=== PATIENT | female | born 1990 | race Caucasian/White ===

== ENCOUNTER 2017-01-25 10:29 | Inpatient (IN) | payer BC ==
[~2017-01-25] VITALS: Ht 167.6 cm; Wt 98.9 kg
--- NOTE | ~2017-01-25 | A ---
[facility] Nutrition Therapy DATE: 01/27/17 Patient: SAM DENTON Physician: NICOLETTE Address: [address] [place] [address] Room/Bed: [address] [place] [address], Zip: [place] [address] Admit Date: 01/25/17 Date of : [birth year] Height: 5 6 Weight: 218 98.88 NUTRITIONAL ASSESSMENT: REASON: Consult for low fiber diet education Recommendations: RD was reviewing the patient's chart in [facility] when it was discovered the patient has been discharged before diet eduacation was able to be performed. Will mail patient the appropriate diet education handouts with RD contact info. Respectfully, Alise Barber RD, [facility] [employer] [facility] cc: client file
--- NOTE | ~2017-01-25 | CO ---
Unit #: [id number] #: [id number] Patient: SAM DENTON [id number] [address] [address] [id number] MR#: [id number] NAME: SAM DENTON ROOM: 241 Age: 26 Sex: F Admission Date: 01/25/2017 : 1990 Attending Physician: Pedro Ventura M.D. Primary Care Physician: No Primary Care Physician Consultation Date: 01/25/2017 CONSULTATION REPORT REASON FOR CONSULTATION Left lower quadrant pain. CONSULTING PHYSICIAN [facility] Emergency Room physician. Thank you very much for asking us to see Ms. Denton. HISTORY OF PRESENT ILLNESS She is a 26-year-old female whose past medical history is remarkable for tubal ligation and a history of diverticulitis a year ago. She was treated nonoperatively and it resolved. She states she has had a colonoscopy a year ago by a baggagemaster named Dr. Espinoza, but she does not know the results. She was well until one to two weeks ago when she developed left lower quadrant pain. She denies any GI bleeding. She has had no or pulmonary symptoms. Her weight has been stable, and her appetite has been good. The pain is a deep pressure pain in the left lower quadrant with occasional sharp exacerbations. She came to the emergency room for evaluation. A CT scan of the abdomen and pelvis revealed inflammatory changes of an 18 inch segment of colon in left lower quadrant with possibly a few adjacent small bubbles of air. The area was significantly inflamed. She presents at this time for further evaluation and treatment. ALLERGIES No known medical allergies. MEDICATIONS Dicyclomine. PAST SURGICAL HISTORY Tubal ligation. PAST MEDICAL HISTORY Diverticulitis. SOCIAL HISTORY No alcohol use. Positive tobacco use. REVIEW OF SYSTEMS Negative except for above. IMMUNIZATION Immunization status unknown. Unit #: [id number] #: [id number] Patient: SAM DENTON FAMILY HISTORY Noncontributory. PHYSICAL EXAMINATION GENERAL: A well-developed, well-nourished, female in no apparent distress. Awake, alert, and oriented. VITAL SIGNS: Temperature 98.7, pulse 85, respirations 17, blood pressure 123/82. NECK: Supple. No thyromegaly or adenopathy. BACK: No CVA or spinous tenderness. HEENT: Sclerae nonicteric. Extraocular movements are intact. ABDOMEN: Flat, soft, tender in the left lower quadrant but no rebound, peritoneal signs, or masses. No guarding. EXTREMITIES: No calf tenderness. No erythema. DIAGNOSTIC STUDIES LABORATORY: Reveal a normal CMP, normal urinalysis, and a white count of 11,000. IMPRESSION A 26-year-old female with her second episode of acute diverticulitis. We recommend IV fluids, IV antibiotics and after this resolves she may need a colonoscopy. We have also discussed with her the fact that with two episodes at a very young age, she may need elective resection of the area if diverticular disease is indeed found. Our priority at this point is to have this resolved nonoperatively. Dictated by... Kvng Linton M.D. Jez TD: 01/26/2017 10:37 JOB #: [id number] CC: [facility] CONSULTATION REPORT Page 1 of 1 X Kvng Linton MD X CONSULTATION REPORT
--- NOTE | ~2017-01-25 | CT4 ---
[facility] A Service of [facility] RADIOLOGY TEXT RESULTS PATIENT: SAM DENTON LOCATION: [facility] : [birth year] UNIT #: [id number] AGE: [address]: Fred Paige MD SEX: F ORDER DR: [id number] [facility] [address]. [place], [place] [address] [id number] MR#: [id number] Acc #: [id number] NAME: SAM DENTON : 1990 SEX: F STUDY DATE/TIME: 01/25/2017 12:23 UNIT: DAVID ROOM: STUDY DESCRIPTION: CT Abd and Pelv Wo Cont Attending Physician: Fred Paige M.D. Referring Physician: No Primary Care Physician Ordering Physician: Fred Paige M.D. Primary Care Physician: No Primary Care Physician MEDICAL IMAGING REPORT This report is preliminary unless electronic signature is present EXAM CT abdomen and pelvis without contrast. HISTORY Lower abdomen pain for 3 weeks. COMPARISON 05/05/2016 TECHNIQUE Axial 5 mm images were obtained through the abdomen and pelvis without IV or oral contrast. Sagittal and coronal reconstructions were generated. This CT exam was performed with one or more of the following radiation dose reduction techniques: automatic exposure control, adjustment of mA and/or kV according to patient size, and iterative reconstruction. FINDINGS Lung bases are clear. The liver, gallbladder, spleen, pancreas, adrenal glands, and kidneys are normal. The aorta is normal in size. The appendix is normal. Sigmoid colon is abnormal. There is a long segment measuring at least 18 cm in length that shows wall thickening and slight distension. There are diverticula. There are 2 bubbles that could possibly be extraluminal. They are only 3 mm in diameter. It is also possible these are within small diverticula. They are along the posterior wall. There is inflammation in the surrounding fat. The more distal colon is normal. The bladder and uterus and adnexal regions are normal. The bones are unremarkable. IMPRESSION The patient has about an 18 cm long segment of the sigmoid colon that is markedly abnormal with slight distension and wall thickening. There are [facility] A Service of [facility] RADIOLOGY TEXT RESULTS PATIENT: SAM DENTON LOCATION: [facility] : [birth year] UNIT #: [id number] AGE: [address]: Fred Paige MD SEX: F ORDER DR: several diverticula visible in this region. It is difficult to exclude tiny bubbles of extraluminal air but they are probably contained in small thin-walled diverticula. There is inflammation in the surrounding fat. There are small lymph nodes in the mesentery in this region that are abnormal in their quantity. Findings likely represent colitis and/or diverticulitis. This is the same area that was abnormal 05/05/2016. The findings are worst today than on that examination. Dictated by... Jair Corea M.D. THIS IS AN ELECTRONICALLY VERIFIED REPORT Jair Corea M.D. at 01/25/2017 3:31 PM ROMAIN/suyapa TD: 01/25/2017 14:54 JOB #: [id number] MEDICAL IMAGING REPORT Page 1 of 1 COPY
--- NOTE | ~2017-01-25 | DS ---
Unit #: [id number] #: [id number] Patient: SAM DENTON [id number] [address] [address] [id number] I MR#: [id number] NAME: SAM DENTON ROOM: 241 Age: 26 Sex: F Admission Date: 01/25/2017 : 1990 Discharge Date: 01/27/2017 Attending Physician: Pedro Ventura M.D. Referring Physician: No Primary Care Physician Primary Care Physician: No Primary Care Physician DISCHARGE SUMMARY DISCHARGE DIAGNOSIS Colitis versus diverticulitis of the left colon. OPERATIVE PROCEDURES None. DISCHARGE MEDICATIONS 1. Augmentin 875 mg one p.o. b.i.d. 2. Flagyl 250 mg one p.o. t.i.d. 3. Lortab 7.5 mg one p.o. q.4 hours p.r.n. pain. HISTORY OF PRESENT ILLNESS This is a 26-year-old white female who was admitted with possible diverticulitis versus colitis. A CT scan of the abdomen shows some inflammation of the left colon. WBC count was 11,000. The patient incidentally had a colonoscopy done a year ago which was within normal limits. Diagnosis at that time was irritable bowel with a very similar episode. The patient was admitted, given IV antibiotics for 48 hours. Her symptoms cleared fairly quickly. Her diet was advanced to a low residue diet. She is nontender. WBC count is normal. She is afebrile. She is ready to be discharged, come back to see us in the office in about 8 to 12 days. We will put her on oral antibiotics. She is to do no strenuous activity until we do see her in the office. Colonoscopy will be entertained to be done in about two weeks. Dictated by... Surendra Pastor/cindy TD: 01/29/2017 09:21 JOB #: [id number] DISCHARGE SUMMARY Page 1 of 1 X Roger Gagnon MD X DISCHARGE SUMMARY
[~2017-01-25 10:29] MED LIST: CIPRO PO; FLEXERIL10 MG PO; LORTAB 5/500 TA1 TA1 PO; METRONIDAZOLE PO; NO MEDICATIONS; PHENERGAN25 M1 PO
[2017-01-25 11:23] LABS: URINE SOURCE CLEAN CATCH
[2017-01-25 11:29] LABS: URINE APPEARANCE CLEAR; URINE BILIRUBIN NEG (NEG); URINE BLOOD 3+ (NEG); URINE COLOR YELLOW; URINE GLUCOSE NORM (NORM); URINE KETONE NEG (NEG); URINE LEUKOCYTE ESTERASE NEG (NEG); URINE NITRATE NEG (NEG); URINE PROTEIN NEG (NEG); URINE UROBILINOGEN NORM (NORM)
[2017-01-25 11:32] LABS: URBCS1 AUWI 25-50 /[HPF] (0-2); URINE BACTERIA AUWI NEG (NEGATIVE); URINE SQUAMOUS EPITHELIAL CELL OCC /[HPF]
[2017-01-25 11:33] LABS: CULTURE INDICATED? NO
[2017-01-25 11:38] LABS: BASOPHIL% 0.2 % (0-2.5); EOSINOPHIL% 0.4 % (0.0-7.0); HEMATOCRIT 33.5 % (35.0-45.0); HEMOGLOBIN 10.8 gm/dL (12.0-16.0); LYMPHOCYTE# 1.8 X10e3 (1.0-3.5); LYMPHOCYTE% 15.6 % (17.0-45.0); MEAN CELL VOLUME 74.1 FL (83-96); MEAN CORPUSCULAR HEMOGLOBIN 23.8 PG (28-34); MEAN CORPUSCULAR HGB CONC 32.2 g/dL (30-36); MEAN PLATELET VOLUME 8.4 FL (6.5-11.5); MONOCYTE# 0.5 X10e3 (0-1.0); NEUTROPHIL# 9.4 X10e3 (1.5-7.1); NEUTROPHIL% 79.8 % (40-75); PLATELET COUNT 278 X10e3 (140-420); RED BLOOD COUNT 4.52 X10e (3.90-5.30); RED CELL DISTRIBUTION WIDTH 15.7 % (11.0-15.5); WHITE BLOOD COUNT 11.7 X10e3 (4.0-10.5)
[2017-01-25 11:41] LABS: DIFF IND NO
[2017-01-25 12:11] LABS: ALBUMIN SERUM 3.6 g/dL (3.5-5.0); ALKALINE PHOSPHATASE 66 U/L (32-92); ALT (SGPT) 11 U/L (10-40); AMYLASE 18 U/L (0-46); AST (SGOT) 14 U/L (10-42); BILIRUBIN,TOTAL 0.6 mg/dL (0.2-2.0); BLOOD UREA NITROGEN 10 mg/dL (9-23); BUN/CREATININE RATIO 16.66; CALCIUM SERUM 8.9 mg/dL (8.4-10.2); CARBON DIOXIDE 25 mmol/L (22-31); CHLORIDE 107 mmol/L (100-111); CREATININE SERUM 0.6 mg/dL (0.6-1.4); GLOM FILT RATE Estimated 125.8 mL/min (>60); GLUCOSE FASTING 100 mg/dL (70-110); LIPASE 18 U/L (22-51); POTASSIUM 3.6 mmol/L (3.5-5.1); PROTEIN TOTAL SERUM 6.9 g/dL (6.0-8.3); SODIUM 138 mmol/L (135-145)
[2017-01-25 12:12] LABS: BILIRUBIN, DIRECT <0.1 mg/dL (0.0-0.2); BILIRUBIN,INDIRECT 0.5 mg/dL (0.0-0.9)
[2017-01-26 07:29] LABS: HEMATOCRIT 34.5 % (35.0-45.0); HEMOGLOBIN 11.2 gm/dL (12.0-16.0); MEAN CELL VOLUME 73.7 FL (83-96); MEAN CORPUSCULAR HEMOGLOBIN 23.8 PG (28-34); MEAN CORPUSCULAR HGB CONC 32.3 g/dL (30-36); MEAN PLATELET VOLUME 8.5 FL (6.5-11.5); RED BLOOD COUNT 4.68 X10e (3.90-5.30); RED CELL DISTRIBUTION WIDTH 15.4 % (11.0-15.5); WHITE BLOOD COUNT 11.7 X10e3 (4.0-10.5)
[2017-01-26 08:03] LABS: CALCIUM SERUM 8.7 mg/dL (8.4-10.2); CREATININE SERUM 0.7 mg/dL (0.6-1.4); GLOM FILT RATE Estimated 119.6 mL/min (>60); POTASSIUM 3.4 mmol/L (3.5-5.1)
[2017-01-27] MEDS ORDERED: LORTAB 7.5-3251 EACH PO (09:47)
[2017-01-27] MEDS ORDERED: FLAGYL250 M1 PO (09:51)
[2017-01-27] MEDS ORDERED: AUGMENTIN PO (09:51)
[2017-03-08] MEDS ORDERED: DICYCLOMINE HCL10 MG (14:56)
== END 2017-01-27 10:42 | disposition home or self-care (01) | DRG 392 ==
LOC: CFTX 10:29 → CED 10:29 → C2A 15:49
PROVIDERS: Emergency Medicine; Surgery
DX: K57.92 Diverticulitis of intestine, part unspecified, without perforation or abscess without bleeding (principal); Z98.51 Tubal ligation status
CPT/HCPCS: 36415; 74176; 80048; 80076; 81003; 82150; 83690; 84703; 85025; 85027; 94010; 96360; 96372; 99285; J0500; J1650; J2543; J2550

== ENCOUNTER → 2017-03-13 | Day surgery (SDC) | payer BC ==
[~2017-03-13] MED LIST changes: +AUGMENTIN PO; +DICYCLOMINE HCL10 MG; +FLAGYL250 M1 PO; +LORTAB 7.5-3251 EACH PO
--- NOTE | ~2017-03-13 | OR ---
Unit #: [id number] #: [id number] Patient: SAM DENTON [id number] [address] [place], [place] [address] [id number] O MR#: [id number] NAME: SAM DENTON ROOM: Date of Procedure: 03/13/2017 Admission Date: 03/13/2017 Surgeon: Kvng Linton M.D. : 1990 Attending Physician: Kvng Linton M.D. Primary Care Physician: Generic Doctor Not In System OPERATIVE REPORT PREOPERATIVE DIAGNOSIS Left lower quadrant pain. POSTOPERATIVE DIAGNOSIS Left lower quadrant pain. PROCEDURE PERFORMED Colonoscopy to cecum. ANESTHESIA Monitored anesthesia care. FINDINGS The patient was found to have scattered sigmoid diverticula and a tortuous colon. SPECIMENS None. COMPLICATIONS None apparent. CONDITION The patient tolerated the procedure well. INDICATIONS FOR PROCEDURE The patient is a 27-year-old female, who presents at this time with a left lower quadrant pain. She had a recent episode was felt to be diverticulitis. She presents at this time for evaluation by colonoscopy. DESCRIPTION OF PROCEDURE After obtaining informed consent, the patient was brought to the endoscopy suite and after adequate monitored anesthesia care, had the colonoscope placed through the anus and slowly advanced to the level of the cecum without difficulty with the lumen always in view. The cecum was normal as was the ileocecal valve. The ascending colon was normal as was the hepatic flexure, transverse colon, splenic flexure, and descending colon. The sigmoid colon was very tortuous and had only scattered sigmoid diverticula. They were not very numerous. The rectosigmoid and rectum were all within normal limits. On retroflexing in the rectum to the anorectal junction, no abnormalities were seen. The scope was removed without difficulty. The patient went from the endoscopy suite to the recovery area in stable condition. Unit #: [id number] #: [id number] Patient: SAM DENTON RECOMMENDATIONS High-fiber diet, lots of liquids, tucks or wipes p.r.n. Diverticular sheet given. Dictated by... Surendra Ruelas/trent TD: 03/13/2017 14:10 JOB #: [id number] CC: [facility] J Coole, M.D. OPERATIVE REPORT Page 1 of 1 X Kvng Linton MD PROCEDURE OPERATIVE NOTE
== END | disposition home or self-care (01) ==
LOC: COPS 05:45
PROVIDERS: Surgery
PROC: 0DJD8ZZ Inspection of Lower Intestinal Tract, Via Natural or Artificial Opening Endoscopic (ICD-10-PCS; principal; 2017-03-13 07:30)
DX: K57.30 Diverticulosis of large intestine without perforation or abscess without bleeding (principal); K63.89 Other specified diseases of intestine; K58.9 Irritable bowel syndrome, unspecified; Z87.891 Personal history of nicotine dependence; Z79.899 Other long term (current) drug therapy; Z79.891 Long term (current) use of opiate analgesic; Z98.51 Tubal ligation status; Z83.42 Family history of familial hypercholesterolemia; Z82.49 Family history of ischemic heart disease and other diseases of the circulatory system; Z83.3 Family history of diabetes mellitus
CPT/HCPCS: 84703; J2250